=== PATIENT | female | born 1980 | race Caucasian/White ===

== ENCOUNTER 2019-03-05 14:51 | Day surgery (SDC) | payer OTHER ==
[2019-03-05] MEDS ORDERED: LACTATED RINGER'S 1,000 ML IV (16:30)
[2019-03-05] MEDS ORDERED: DIPHENHYDRAMINE 50 MG INJ IV (17:30)
[2019-03-05] MEDS ORDERED: MEPERIDINE 25 MG INJ IV (17:30)
[2019-03-05] MEDS ORDERED: OXYCODONE/ACETAMINOPHEN (5/325) TAB PO (17:30)
[2019-03-05] MEDS ORDERED: FENTAnyl 50 MCG/ML VIAL IV (17:30)
[2019-03-05] MEDS ORDERED: HYDROmorphONE 1 MG/5 ML IV SYRINGE IV ×3 (17:30)
[2019-03-05] MEDS ORDERED: ONDANSETRON 4 MG INJ IV (17:30)
[2019-03-05] MEDS ORDERED: PROCHLORPERAZINE 10 MG INJ IV (17:30)
[2019-03-05] MEDS ORDERED: CEFAZOLIN 1 GM INJ (19:18)
[2019-03-05] MEDS ORDERED: FENTAnyl 50 MCG/ML VIAL (19:18)
[2019-03-05] MEDS ORDERED: PROPOFOL 20 ML (19:18)
[2019-03-05] MEDS ORDERED: MIDAZOLAM 1 MG/ML 2 ML INJ (19:18)
[2019-03-05] MEDS: BUPIVACAINE 0.5% (SDV) 30 ML INJ (19:55)
[2019-03-05] MEDS ORDERED: METOCLOPRAMIDE 10 MG INJ (20:02)
[2019-03-05] MEDS ORDERED: DEXAMETHASONE 4 MG/ML 5 ML INJ (20:02)
[2019-03-05] MEDS ORDERED: ONDANSETRON 4 MG INJ (20:02)
[2019-03-05] MEDS ORDERED: KETOROLAC 30 MG INJ (20:02)
== END 2019-03-05 21:34 | disposition home or self-care (01) ==
LOC: SDS 14:51
DX: M65.311 Trigger thumb, right thumb (principal); M67.441 Ganglion, right hand
CPT/HCPCS: 26160; 84703